=== PATIENT | female | born 1975 | race Caucasian/White ===

== ENCOUNTER → 2016-10-09 | Outpatient (CLI) | payer BC ==
[~2016-10-09] MED LIST: ALDOMET PO; IRON325 M1 PO; PRENATAL1 TA1 PO
== END ==
LOC: MC.RAD 10:00
DX: Z12.31 Encounter for screening mammogram for malignant neoplasm of breast (principal); N64.89 Other specified disorders of breast

== ENCOUNTER → 2017-10-10 | Outpatient (CLI) | payer BC | LOC: MC.RAD 09:50 | DX: Z12.31 Encounter for screening mammogram for malignant neoplasm of breast (principal) ==

== ENCOUNTER 2018-09-25 09:08 | Day surgery (SDC) | payer BC ==
[2018-09-25] VITALS (9 sets, daily range): BP systolic 91–151; BP diastolic 53–80; PULSE 57–98; TEMP 97.7–98.2
[~2018-09-25] VITALS: Ht 165.1 cm; Wt 127.5 kg
[~2018-09-25 09:08] MED LIST changes: +MOTRIN 800800 MG/TAB PO; +PERCOCET 325 MG1 TA2 PO
[2018-09-25] MEDS ORDERED: KLOR-CON M1010 MEQ PO (10:34)
[2018-09-25] MEDS ORDERED: SYNTHROID0.112 MG/T PO (10:34)
[2018-09-25] MEDS ORDERED: SINGULAIR 110 MG/TAB PO (10:35)
[2018-09-25] MEDS ORDERED: LISINOP/HCTZ TAB 10- PO (10:35)
--- NOTE | 2018-09-25 14:20 | NUR ---
To room 222 from the o.r. Rests at this time with eyes closed. Responds to verbal stimuli. O2 at 2L, nibp on right arm. Spouse at bedside.
--- NOTE | 2018-09-25 14:35 | NUR ---
Continues to rest with eyes closed. Resperations even and unlabored. Spouse at bedside.
--- NOTE | 2018-09-25 15:05 | NUR ---
Rests in bed with eyes closed. Resperations even and unlabored. Spouse at bedside.
[2018-09-26 03:03] VITALS: BP 120/72; PULSE 75; TEMP 98.6
[2018-09-26 08:45] VITALS: BP 102/51; PULSE 79; TEMP 98.2
[2018-09-26] MEDS ORDERED: DETROL 2MG TAB2 MG PO (10:03)
== END 2018-09-26 12:25 | disposition home or self-care (01) ==
LOC: SDCO 09:08 → OB 14:20 → SDCO 09-26 12:25
DX: D25.1 Intramural leiomyoma of uterus (principal); D25.2 Subserosal leiomyoma of uterus; N83.8 Other noninflammatory disorders of ovary, fallopian tube and broad ligament; N83.02 Follicular cyst of left ovary; N92.1 Excessive and frequent menstruation with irregular cycle; I73.9 Peripheral vascular disease, unspecified; Z88.0 Allergy status to penicillin; Z88.8 Allergy status to other drugs, medicaments and biological substances; E03.9 Hypothyroidism, unspecified; F41.9 Anxiety disorder, unspecified; J30.2 Other seasonal allergic rhinitis; K21.9 Gastro-esophageal reflux disease without esophagitis; I10 Essential (primary) hypertension
CPT/HCPCS: OP; A4314; J0690; J1100; J1170; J1885; J2405; J2704; J2710; J3010; J7120

== ENCOUNTER → 2018-11-05 | Outpatient (CLI) | payer BC ==
[~2018-11-05] MED LIST changes: +DETROL 2MG TAB2 MG PO; +KLOR-CON M1010 MEQ PO; +LISINOP/HCTZ TAB 10- PO; +SINGULAIR 110 MG/TAB PO; +SYNTHROID0.112 MG/T PO
== END ==
LOC: MC.RAD 10-01 13:45
DX: Z12.31 Encounter for screening mammogram for malignant neoplasm of breast (principal)

== ENCOUNTER → 2020-03-15 | Outpatient (CLI) | payer BC | LOC: MC.RAD 09:45 | DX: Z12.31 Encounter for screening mammogram for malignant neoplasm of breast (principal) ==

== ENCOUNTER → 2021-02-27 | Outpatient (CLI) | payer BC | LOC: MC.RAD 15:00 | DX: Z12.31 Encounter for screening mammogram for malignant neoplasm of breast (principal) ==

== ENCOUNTER → 2023-01-16 | Outpatient (CLI) | payer BC | LOC: MC.RAD 09:22 | DX: Z12.31 Encounter for screening mammogram for malignant neoplasm of breast (principal) ==

== ENCOUNTER → 2023-12-19 | Outpatient (CLI) | payer BC | LOC: MC.RAD 12:55 | DX: Z12.31 Encounter for screening mammogram for malignant neoplasm of breast (principal) ==